=== PATIENT | female | born 1995 | race Caucasian/White ===

== ENCOUNTER 2020-09-06 09:29 | Emergency (ER) | payer OTHER, SELFPAY ==
[2020-09-06] VITALS (17 sets, daily range): BP systolic 109–141; BP diastolic 71–93; PULSE 70–107; RESP 10–28; TEMP 36.7; O2SAT 95–99
--- NOTE | 2020-09-06 09:30 | DI.CT_ITS ---
EXAM: CT HEAD WO CLINICAL HISTORY: Syncope, dizziness. TECHNIQUE: Imaging Protocol: Axial computed tomography images with coronal and sagittal reformatted images were created and reviewed COMPARISON: No exams were available for comparison FINDINGS: The ventricular system is normal in appearance. No evidence of acute intracranial hemorrhage, mass effect, or midline shift. The orbital structures are unremarkable. The temporal bone structures appear intact. Calvarium: Normal. Visualized Paranasal sinuses/Mastoids: Clear. IMPRESSION: Normal cranial CT. RADIATION DOSE DELIVERED: 737.5mGy.cm Total DLP 737.5mGy.cm Total DLP DATA REPOSITORY: All CT scans at this facility are submitted to the National Radiology Data Registry (NRDR) Dose Index Registry (DIR) with the [employer] ([employer]). RADIATION OPTIMIZATION: All CT scans at this facility use at least one of these dose optimization te chniques: automated exposure control; mA and/or kV adjustment per patient size (includes targeted exa ms where dose is matched to clinical indication); or iterative reconstruction.
--- NOTE | 2020-09-06 09:30 | DI.RAD_ITS ---
EXAM: XR CHEST 2V PA LATERAL CLINICAL HISTORY: Syncope, pain TECHNIQUE: 2D digital imaging was performed. COMPARISON: No exams were available for comparison FINDINGS: The heart is not enlarged. The lungs are clear and well expanded. No pleural effusion seen. Mediastin al contours appear intact. IMPRESSION: Normal chest RADIATION DOSE DELIVERED: Total DLP
--- NOTE | 2020-09-06 09:30 | RT.EKG_ITS ---
APPROVED REPORT Exam: Resting ECG Patient Location: E HR:80 bpm ECG Measurements Heart Rate 80 AXIS NE 127 P 47 QRSd 102 QRS 6 QT 345 T 33 QTc 399 Conclusion Sinus rhythm...normal P axis, V-rate 60- 99 I have reviewed and interpreted ECG and agree with software generated interpretation.
--- NOTE | 2020-09-06 09:41 | W.ED.GENAD ---
Discharge Plan Disposition Patient Disposition: HOME Condition: Stable Discharge Details Clinical Impression: Syncope, UTI (urinary tract infection) Primary Care Provider: None,None ED Provider: Michelle Nova Home Meds and New Rx's Prescriptions: New cephalexin 500 mg capsule 500 mg PO BID 7 Days Qty: 14 RF: 0 Discharge Instructions Instructions: Urinary Tract Infection in Women (ED), Syncope (ED) Additional Instructions: Follow up with primary care provider in 3-5 days. Return to ED sooner if any worsening or concerns. Increase oral fluids. Please take Tylenol or Ibuprofen with food every 4-6 hours as needed for pain and swelling. Return to the ED for any recurrent fainting episodes, worsening pain or any concerns. Discharge Data Discharge Date/Time-TO BE ENTERED AT DEPARTURE: 09/06/20 12:08 Medical Decision Making 25-year-old female presents to the ED with chief complaint of syncope. Patient states that just prior to arrival she was in the bathroom and was about to get in the shower when she had a sharp pain to her left shoulder and left side of her back she became nauseated and dizzy, sat down and had a loss of consciousness. Per the she was out for approximately 5 to 10 seconds she did fall forward off the toilet seat. She did hit her head on her frontal scalp. On arrival she is alert and oriented x3, complaining of blurry vision, soreness and feeling a bump on her forehead. She denies any weakness numbness tingling in her extremities. She denies any chest pain abdominal pain or any other concerns. She has no past medical history takes no medications. EKG was reviewed by Melody Resendiz MD ER attending, please see her official report. There is no old EKG available for review. Normal sinus rhythm, no ectopy no ST elevation. CBC is largely within normal limits CMP is also within normal limits, trace protein in the urine trace blood moderate leukocytes however there is also moderate epithelial cells culture is not indicated at this time due to squamous contamination. However I will treat for possible UTI at this time due to patient symptoms. EXAM: CT HEAD WO CLINICAL HISTORY: Syncope, dizziness. TECHNIQUE: Imaging Protocol: Axial computed tomography images with coronal and sagittal reformatted images were created and reviewed COMPARISON: No exams were available for comparison FINDINGS: The ventricular system is normal in appearance. No evidence of acute intracranial hemorrhage, mass effect, or midline shift. The orbital structures are unremarkable. The temporal bone structures appear intact. Calvarium: Normal. Visualized Paranasal sinuses/Mastoids: Clear. IMPRESSION: Normal cranial CT. Exam(s) a RAD:XR chest 2V PA & lateral EXAM: XR CHEST 2V PA LATERAL CLINICAL HISTORY: Syncope, pain TECHNIQUE: 2D digital imaging was performed. COMPARISON: No exams were available for comparison FINDINGS: The heart is not enlarged. The lungs are clear and well expanded. No pleural effusion seen. Mediastinal contours appear intact. IMPRESSION: Normal chest Patient treated for possible UTI due to moderate leukocytes and 3-5 WBCs noted in the urinalysis. HPI General Mode of arrival: wheelchair. Date/Time Provider Initiated Documentation: 09/06/20 09:32. Limitations to Documentation: no limitations. Information obtained by: patient. HPI Narrative: 25-year-old female presents to the ED with chief complaint of syncope. Patient states that just prior to arrival she was in the bathroom and was about to get in the shower when she had a sharp pain to her left shoulder and left side of her back she became nauseated and dizzy, sat down and had a loss of consciousness. Per the she was out for approximately 5 to 10 seconds she did fall forward off the toilet seat. She did hit her head on her frontal scalp. On arrival she is alert and oriented x3, complaining of blurry vision, soreness and feeling a bump on her forehead. She denies any weakness numbness tingling in her extremities. She denies any chest pain abdominal pain or any other concerns. She has no past medical history takes no medications. Related Data Home Medications Medication Instructions Recorded Confirmed cephalexin 500 mg PO BID 7 Days #14 cap 09/06/20 Previous Rx's Medication Instructions Recorded cephalexin 500 mg PO BID 7 Days #14 cap 09/06/20 Allergies Allergy/AdvReac Type Severity Reaction Status Date / Time No Known Allergies Allergy Unverified 09/06/20 09:39 General Stated Complaint: Dizzy/Sync MELQUIADES: 3 Review of Systems Narrative: Constitutional: Negative for weight loss, alert and oriented, well groomed, normal body habitus, appears comfortable. HEENT: Denies nasal discharge, sore throat, trouble swallowing. Chest: Denies chest pain, palpitations, irregular rhythm, hypertension. Respiratory: Denies Shortness of breath, cough, hemoptysis. GI: Denies abdominal pain, vomiting, diarrhea, constipation. : Denies dysuria, hematuria, flank pain, rectal bleeding. Neuro: Denies weakness or facial numbness. Reports syncope, nausea, blurry vision and headache. Hematologic: Denies easy bruising, intolerance to heat or cold, hair loss. [facility] Social History Smoking/Tobacco Use Status: Never Alcohol Intake: former Drug use: Never Substance use type: does not use Details: not current alcohol use Do you feel safe at home: Yes Do you feel safe in your relationship?: Yes Exam Narrative Exam Narrative: Constitutional: Alert and oriented x3. Appears stated age. Normal body habitus. Head: Normocephalic, no trauma. Eyes: Pupils PERRLA, Red reflex noted, EOM's intact. Eyelids symmetrical without lesions, discharge, or swelling. ENT: Bilateral TM's WNL, External ear normal to inspection, no mastoid TTP, swelling, or erythema, Nasal turbinates WNL, no nasal discharge. Normal dentition, Posterior pharynx WNL, no exudate. Chest: RRR, Normal S1, S2, distal pulses intact. Resp: Lungs clear to auscultation bilaterally, no wheezes, rales, or rhonchi. Musculoskeletal: Normal gait, 5/5 strength to all four extremities. Skin: No suspicious rashes or lesions. Capillary refill less than 2 sec. Neurologic: Cranial nerves II-XII intact. Alert and oriented x 3. DTR's intact. Hematologic/Lymphatic: No ecchymosis, no lymphadenopathy. Course Vital Signs Vital signs: Vital Signs Temperature 36.7 C 09/06/20 09:31 Pulse 107 H 09/06/20 09:31 Respiratory Rate 28 H 09/06/20 09:31 Blood Pressure 138/93 H 09/06/20 09:31 Pulse Oximetry 99 09/06/20 09:31 Temperature 36.7 C 09/06/20 09:31 Temperature Source Skin 09/06/20 09:31 Pulse 107 H 09/06/20 09:31 Respiratory Rate 28 H 09/06/20 09:31 Blood Pressure 138/93 H 09/06/20 09:31 Pulse Oximetry 99 10/07/20 09:31 Oxygen Delivery Method Room Air 09/06/20 09:31 Oxygen Flow Rate 0 09/06/20 09:31 Pain Level 1 09/06/20 09:31 Comment 09/06/20 09:31
[2020-09-06] MEDS: Normal Saline 1,000 ML 1000 ML IV (09:50)
[2020-09-06 09:58] LABS: Abs Immature Grans 0.03 10^3/uL (0.0-0.06); Absolute Basophil Count 0.07 10^3/uL (0.0-0.2); Absolute Eosinophil Count 0.24 10^3/uL (0.0-0.7); Absolute Lymphocyte Count 2.03 10^3/uL (1.2-3.4); Absolute Monocyte Count 0.32 10^3/uL (0.1-0.8); Absolute Neutrophil Count 5.56 10^3/uL (1.2-6.7); Basophils % 0.8; Eosinophils % 2.9; HCT 41.9 % (36.0-46.0); HGB 14.6 g/dL (11.2-15.7); Immature Grans % 0.4; Lymphocytes % 24.6; MCHC 34.8 % (32.0-36.0); MCV 83.3 fL (80-95); MPV 10.8 fL (8.0-11.0); Monocytes % 3.9; Neutrophils % 67.4; Nucleated RBC 0 %; Platelet Count 279 10^3/uL (130-400); RBC 5.03 10^6/uL (3.93-5.22); RDW 12.6 % (11.7-14.6); RDW-SD 37.9 fL; WBC 8.25 10^3/uL (4.4-10.8)
[2020-09-06] MEDS: Normal Saline Flush 10 ML SYR IVP (10:00)
[2020-09-06 10:16] LABS: ALT 36 U/L (14-59); AST 14 U/L (15-37); Albumin 3.7 g/dL (3.4-5.0); Alkaline Phosphatase 84 U/L (46-116); BUN 13 mg/dL (7-18); Bilirubin, Total 0.6 mg/dL (0.2-1.0); CREATININE 0.87 mg/dL (0.55-1.02); Calcium 8.8 mg/dL (8.5-10.1); Chloride 106 mmol/L (98-107); Glucose 104 mg/dL (74-106); Magnesium 2.2 mg/dL (1.8-2.4); Potassium 3.7 mmol/L (3.5-5.1); Sodium 142 mmol/L (136-145); Total Protein 7.3 g/dL (6.4-8.2); Troponin I < 0.05 ng/mL (<0.06)
[2020-09-06 10:38] LABS: Bilirubin Negative (Negative); Blood Trace-lysed (Negative); Clarity Sl Cloudy (Clear); Glucose Negative (Negative); Ketones Negative (Negative); Leukocyte Esterase Moderate (Negative); Nitrite Negative (Negative); Specific Gravity 1.025 (1.005-1.025); Urobilinogen 0.2 EU/dL (Up TO 0.2); pH 6.5 (5-8)
[2020-09-06 10:51] LABS: Bacteria Many HPF (Negative); Epithelial Cells Moderate HPF (Negative); Other Cells Few Renal (Negative)
[2020-09-06 10:52] LABS: C & S Indicated? No/Sq. Contamination; Casts Negative LPF (Negative); Crystals Negative HPF (Negative); Mucus Moderate (Negative)
--- NOTE | 2020-09-06 11:36 | NUR.NOTE ---
Nursing Note: Referral to get a PCP for follow up within one week given to Care Management, Simi Cornell
[2020-09-06] MEDS: Cephalexin 500 MG CAP PO (12:11)
--- NOTE | 2020-09-06 19:11 | CMPROGNOTE_ITS ---
- If Service Date Differs Date of service: 09/06/20 Time of Service: 19:11 Care Management Progress Note Tia is seen in the ED for syncope. At the request of ED provider, CM coordinates a referral to Denise Owens NP, on-call provider, of [facility], to assist Tia in obtaining a follow-up appointment within the next week and in establishing care with PCP.
== END 2020-09-06 12:08 | disposition home or self-care (01) ==
PROVIDERS: Emergency Provider Registered Nurse Emergency
DX: R55 Syncope and collapse (principal); N39.0 Urinary tract infection, site not specified; S09.90XA Unspecified injury of head, initial encounter; W18.11XA Fall from or off toilet without subsequent striking against object, initial encounter; H53.8 Other visual disturbances
CPT/HCPCS: 36415; 80053; 81025; 93005; 96360; 99285; 70450; 71046; 81003; 81015; 83735; 84484; 85025; 93010; 99284